=== PATIENT | male | born 1965 | race Caucasian/White ===

== ENCOUNTER → 2017-02-16 | Outpatient (REF) | LOC: WSOH 11:07 | DX: Z02.89 Encounter for other administrative examinations (principal) ==

== ENCOUNTER 2019-01-12 11:11 | Outpatient (RCR) | payer OTHER | END 2019-04-12 | disposition home or self-care (01) | LOC: WSOH | DX: M25.511 Pain in right shoulder (principal); X50.0XXA Overexertion from strenuous movement or load, initial encounter; Y92.59 Other trade areas as the place of occurrence of the external cause; Y99.0 Civilian activity done for income or pay; M12.811 Other specific arthropathies, not elsewhere classified, right shoulder; R20.0 Anesthesia of skin ==